=== PATIENT | male | born 1950 ===

== ENCOUNTER 2018-05-16 07:13 | Day surgery (SDC) | payer MEDICARE ==
[2018-05-07 09:24] VITALS: BMI 23.5
[2018-05-16 07:49] VITALS: TEMP 98
[2018-05-16] MEDS ORDERED: Propofol 10 mg/ml Inj (20 ML) ONE (08:53)
[2018-05-16] MEDS ORDERED: Sodium Chloride 0.9% 1,000 ML IV SCH (10:30)
[2018-05-16 15:15] VITALS: BP 153/81; PULSE 78; RESP 18; O2SAT 99
== END 2018-05-16 11:53 | disposition home or self-care (01) ==
LOC: ENDO 07:13
PROVIDERS: ATTEND Internal Medicine Gastroenterology
DX: B37.81 Candidal esophagitis (principal); K29.50 Unspecified chronic gastritis without bleeding; B96.81 Helicobacter pylori [H. pylori] as the cause of diseases classified elsewhere; Z12.11 Encounter for screening for malignant neoplasm of colon; D12.2 Benign neoplasm of ascending colon; D12.5 Benign neoplasm of sigmoid colon; K64.1 Second degree hemorrhoids; E11.9 Type 2 diabetes mellitus without complications; I10 Essential (primary) hypertension
CPT/HCPCS: 43239; 45385; 82948; 88305; 88312; 88342; J2001; J2704; J7030 ×2; J7040